=== PATIENT | female | born 1985 | race Caucasian/White ===

== ENCOUNTER 2018-05-10 12:22 | Emergency (ER) | payer OTHER ==
[2018-05-10 12:34] VITALS: BP 115/71
[2018-05-10] MEDS ORDERED: BUFFERED LIDOCAINE 10 ML SYRINGE SUBQ STA (12:53)
[2018-05-10] MEDS ORDERED: BACITRACIN OINT TOP STA (13:10)
--- NOTE | 2018-05-10 13:26 | ED Physician Documentation ---
PD HPI UPPER EXT INJURY - Stated complaint Stated Complaint: LEFT HAND LAC - Chief complaint Chief Complaint: Laceration - History obtained from History obtained from: Patient - History of Present Illness Location: Left, Finger Type of injury: Other (The patient was using a mandolin and unfortunately sliced her third and fourth digit with the mandolin.) Where injury occurred: Home Timing - onset: Other (Just prior to arrival) Timing - details: Abrupt onset Severity Comments: Moderate Improved by: Nothing Worsened by: Moving Associated symptoms: No: Weakness, Numbness, Tingling, Swelling, Discolored Contributing factors: No: Anticoagulated, Prior ortho surgery Similar symptoms before: No diagnosis Recently seen: Not recently seen Review of Systems Constitutional: denies: Fever Eyes: denies: Discharge Ears: denies: Ear pain Nose: denies: Congestion Skin: reports: Laceration (s) Musculoskeletal: reports: Extremity pain Immunocompromised: denies: Chemotherapy PD PAST MEDICAL HISTORY - Allergies Allergies/Adverse Reactions: Allergies Allergy/AdvReac Type Severity Reaction Status Date / Time latex Allergy Rash Verified 05/10/18 12:34 pinapple Allergy Nausea Uncoded 05/10/18 12:34 wasp Allergy Anaphylaxis Uncoded 05/10/18 12:34 PD ED PE NORMAL - General General: Alert and oriented X 3, No acute distress - HEENT HEENT: Atraumatic, PERRL - Extremities Extremities: Normal ROM s pain - Neuro Neuro: Alert and oriented X 3, Normal speech - Psych Psych: Normal affect PD ED PE EXPANDED - Extremities JESUS MANUEL UE/Hands Visual: 1 - laceration (The distal portion of the finger has been sliced with the mandolin, the distal fourth of the fingernail has also been avulsed. There is no evidence of foreign body. The patient has full active range of motion of all the fingers in both flexion and extension. There is no clinical evidence of a tendon injury. The bleeding currently is controlled. There is normal cap refill and a normal radial pulse. There is no bony tenderness) 2 - laceration (This is a second area of avulsed tissue, the tissue loss is superficial.) Results - Vitals Vitals: Vital Signs - 24 hr 05/10/18 12:31 Temperature 37.3 C Heart Rate 69 Respiratory 18 Rate Blood Pressure 115/71 O2 Saturation 100 Oxygen O2 Source Room air Procedures - Regional nerve block Nerve block site: Digital - note digit(s) Right / left: Left Nerve block anesthesia: Lidocaine 1% Nerve block aftercare: Moderate Anesthesia, Patient tolerated well, No complications PD MEDICAL DECISION MAKING - ED course ED course: The patient's wound are in an avulsion injury, there is no tissue that would benefit from suture repair. This wound will require healing via secondary intention. The wound was managed in the emergency department with a digital block and copious irrigation under the faucet. The patient's wounds were dressed. I explained to the patient the course the wound would take in the approximate duration of wound healing. I discussed warning signs for infection and recommended returning to the emergency department for any worsening or concerns. Departure - Departure Disposition: 01 Home, Self Care Clinical Impression: Avulsion, finger tip Qualifiers: Encounter type: initial encounter Qualified Code(s): S61.209A - Unspecified open wound of unspecified finger without damage to nail, initial encounter Condition: Good Instructions: ED Laceration Hand Follow-Up: CANDI ELDER [Primary Care Provider] - Within 1 week Comments: Please apply Neosporin and a dressing twice daily to your wound. Please change the dressing that we have applied tomorrow. Your wound will take several weeks to Appears healed. It may take up to 6 months to fully heal. Please follow-up with your primary care in 7-10 days for a wound recheck. Please return to the emergency department for signs of infection, worsening symptoms or any concerns. Discharge Date/Time: 05/10/18 13:32
== END 2018-05-10 13:32 | disposition home or self-care (01) ==
LOC: ED 12:22
DX: S61.213A Laceration without foreign body of left middle finger without damage to nail, initial encounter (principal); S61.215A Laceration without foreign body of left ring finger without damage to nail, initial encounter; W26.0XXA Contact with knife, initial encounter; Y92.009 Unspecified place in unspecified non-institutional (private) residence as the place of occurrence of the external cause; M79.645 Pain in left finger(s)
CPT/HCPCS: 64450; 99282; 99283; A9270